=== PATIENT | female | born 1985 | race Caucasian/White ===

== ENCOUNTER 2020-08-03 01:30 | Emergency (ER) | payer OTHER ==
[~2020-08-03] VITALS: Ht 172.7 cm; Wt 67.1 kg
[2020-08-03 01:39] VITALS: BP 129/90; Ht 172.7 cm; Wt 67.1 kg
== END 2020-08-03 04:38 | disposition left against medical advice (07) ==
LOC: ED 01:30
DX: F41.9 Anxiety disorder, unspecified (principal); J45.909 Unspecified asthma, uncomplicated